=== PATIENT | female | born 1965 | race Hispanic/Latino ===

== ENCOUNTER 2018-01-18 23:53 | Emergency (ER) | payer MEDICARE, MEDICAID ==
[2018-01-19 00:05] VITALS: RESP 18
--- NOTE | 2018-01-19 00:39 | ED PDOC ---
HPI: Back Time Seen by Provider: 01/19/18 00:08 Chief Complaint (Nursing): Back Pain Chief Complaint (Provider): Back Pain History Per: Patient History/Exam Limitations: no limitations Onset/Duration Of Symptoms: Days (x4) Current Symptoms Are (Timing): Still Present Additional Complaint(s): Jayne Ferrer is a 52 year old female, with a past medical history of gastritis and schizophrenia, who presents to the emergency department complaining of left ankle and low back pain as well as left buttock pain s/p fall onset x4 days ago. Patient states she fell from a chair that she was standing on and fell onto her back, mostly on left side. Patient describes pain as persistent and has been able to walk but with some pain. She took Ibuprofen today. She denies any head injuries, LOC or other medical complaints. PMD: Raffy Goode Past Medical History Reviewed: Historical Data, Nursing Documentation, Vital Signs Vital Signs: Last Vital Signs Temp 98.6 F 01/19/18 00:01 Pulse 89 01/19/18 00:01 Resp 18 01/19/18 00:01 BP 115/58 L 01/19/18 00:01 Pulse Ox 99 01/19/18 00:01 - Medical History PMH: Anxiety, Depression, Gastritis, GERD, Schizophrenia Denies: Diabetes, Hepatitis, HIV, HTN, Seizures, Sexually Transmitted Disease - Surgical History Surgical History: Cholecystectomy, Tonsillectomy - Family History Family History: States: Unknown Family Hx - Social History Current smoker - smoking cessation education provided: No Alcohol: None Drugs: Denies - Immunization History Hx Tetanus Toxoid Vaccination: No Hx Influenza Vaccination: Yes Hx Pneumococcal Vaccination: Yes - Home Medications Home Medications: Ambulatory Orders Medication Instructions Recorded Benztropine Mesylate [Cogentin] 0.5 mg PO BID 09/21/13 Haloperidol [Haldol] 5 mg PO DAILY 09/21/13 Benztropine [Cogentin] 1 tab PO HS 10/22/15 Dexlansoprazole [Dexilant] 1 tab PO DAILY 10/22/15 Sucralfate 1 tab PO QID 10/22/15 Azithromycin [Zithromax] 250 mg PO DAILY #6 tab 10/23/16 Cetirizine HCl/Pseudoephedrine 1 each PO BID #14 tab.er.12h 05/16/17 [Zyrtec-D Tablet] Promethazine/Codeine 5 ml PO QID #100 ml 10/23/16 [Codeine/Promethazine 10 MG/5 Ml-6.25 MG/5 Ml] predniSONE [Prednisone] 40 mg PO DAILY #10 tab 10/23/16 Cyclobenzaprine [Cyclobenzaprine 10 mg PO TID PRN #15 tab 01/19/18 HCl] - Allergies Allergies/Adverse Reactions: Allergies Allergy/AdvReac Type Severity Reaction Status Date / Time acetaminophen [From Tylenol] Allergy Verified 10/22/15 23:02 tomato Allergy Verified 10/25/15 03:46 Review of Systems ROS Statement: Except As Marked, All Systems Reviewed And Found Negative Musculoskeletal: Positive for: Back Pain (low back and left buttocks ), Foot Pain (left ankle) Neurological: Negative for: Other (LOC) Physical Exam - Reviewed Nursing Documentation Reviewed: Yes Vital Signs Reviewed: Yes - Physical Exam Appears: Positive for: No Acute Distress Head Exam: Positive for: ATRAUMATIC, NORMAL INSPECTION, NORMOCEPHALIC Skin: Positive for: Normal Color, Warm, Dry Eye Exam: Positive for: Normal appearance, EOMI, PERRL Neck: Positive for: Painless ROM Cardiovascular/Chest: Positive for: Regular Rate, Rhythm. Negative for: Murmur Respiratory: Positive for: Normal Breath Sounds. Negative for: Respiratory Distress Gastrointestinal/Abdominal: Positive for: Normal Exam (obese), Soft. Negative for: Tenderness Back: Positive for: Other (mild tenderness to left paralumbar region) Extremity: Positive for: Normal ROM (upper and lower extremities), Other (Some ecchymosis above left ankle. Able to ambulate). Negative for: Deformity (left ankle), Swelling (left ankle) Neurologic/Psych: Positive for: Alert, Oriented - ECG O2 Sat by Pulse Oximetry: 99 (RA) Pulse Ox Interpretation: Normal Medical Decision Making Medical Decision Making: Time: 00:08 Initial Impression: 52 y/o female with ankle and back pain in setting of recent fall. Initial Plan: --Urine --Lumbar Spine Complete [RAD] --Flexeril 10 mg PO --Ankle left 3 views [RAD] --Reevaluation 01:45 -LS Spine and ankle x-ray showed no fracture or dislocation. Patient is medically stable for discharge with Rx for Flexeril. Diagnosis of back and buttocks contusion and ankle sprain. Patient advised to follow up with Dr. Goode. ----- Scribe Attestation: Documented by Xander Diallo, acting as a scribe for Josh Mills MD. Provider Scribe Attestation: All medical record entries made by the Scribe were at my direction and personally dictated by me. I have reviewed the chart and agree that the record accurately reflects my personal performance of the history, physical exam, medical decision making, and the department course for this patient. I have also personally directed, reviewed, and agree with the discharge instructions and disposition. Disposition - Clinical Impression Clinical Impression: Back contusion, Ankle sprain - Disposition Disposition: Routine/Home Disposition Time: 01:45 Condition: STABLE Prescriptions: Cyclobenzaprine [Cyclobenzaprine HCl] 10 mg PO TID PRN #15 tab PRN Reason: back pain Instructions: Ankle Sprain, Contusion (DC) Forms: [employer] ([place])
[2018-01-19 02:43] VITALS: BP 122/65; PULSE 80; TEMP 98.4; O2SAT 100
--- NOTE | 2018-01-19 10:06 | RAD ---
Date of service: 01/19/2018 PROCEDURE: Left Ankle Radiographs. HISTORY: pain COMPARISON: None FINDINGS: BONES: No acute fracture. JOINTS: Ankle mortise maintained. Talar dome intact SOFT TISSUES: Normal. OTHER FINDINGS: Inferior plantar calcaneal spur. IMPRESSION: No demonstrated fracture or dislocation.
--- NOTE | 2018-01-19 10:07 | RAD ---
Date of service: 01/19/2018 PROCEDURE: Radiographs of the Lumbar Spine. HISTORY: pain COMPARISON: No prior. FINDINGS: BONES: Normal alignment. No listhesis. No fracture. Scattered endplate osteophytic changes. DISC SPACES: Unremarkable. OTHER FINDINGS: Right upper quadrant surgical clips. IMPRESSION: No acute fracture. Mild multilevel degenerative changes.
== END 2018-01-19 02:10 | disposition home or self-care (01) ==
LOC: H.ER 23:53
DX: S30.0XXA Contusion of lower back and pelvis, initial encounter (principal); S93.402A Sprain of unspecified ligament of left ankle, initial encounter; Z86.59 Personal history of other mental and behavioral disorders; W07.XXXA Fall from chair, initial encounter